=== PATIENT | female | born 1985 | race Hispanic/Latino ===

== ENCOUNTER 2020-12-08 00:44 | Emergency (ER) | payer SELFPAY ==
[2020-12-08] MEDS ORDERED: CLINDAMYCIN 900 MG/D5% WATER 50 ML IV ONE (01:16)
[2020-12-08] MEDS ORDERED: TETANUS/DIPHTHERIA TOXOID [ADULT] 0.5 ML VIAL IM ONE (01:17)
[2020-12-08] MEDS ORDERED: KETOROLAC TROMETHAMINE 30MG/ML ONE (01:46)
== END 2020-12-08 02:46 | disposition home or self-care (01) ==
LOC: EDH 00:44
DX: S90.821A Blister (nonthermal), right foot, initial encounter (principal); S90.822A Blister (nonthermal), left foot, initial encounter; L03.116 Cellulitis of left lower limb; L03.115 Cellulitis of right lower limb; Z98.51 Tubal ligation status; X58.XXXA Exposure to other specified factors, initial encounter; Y93.89 Activity, other specified; Y92.89 Other specified places as the place of occurrence of the external cause; Y99.8 Other external cause status
CPT/HCPCS: 90471; 90714; 96365; 96375; 99284; J1885; J3490; 96372

== ENCOUNTER 2021-05-19 10:35 | Emergency (ER) | payer OTHER ==
[~2021-05-19] VITALS: Ht 152.4 cm; Wt 56.7 kg
[2021-05-19 12:08] VITALS: BP 127/80
[2021-05-19] MEDS ORDERED: ACETAMINOPHEN WITH CODEINE 1 TAB TAB PO SCH (12:30)
[2021-05-19] MEDS ORDERED: CEFTRIAXONE 1G VIAL IM SCH (12:30)
[2021-05-19] MEDS ORDERED: PHENAZOPYRIDINE HCL 200 MG TABLET PO SCH (12:30)
[2021-05-19] MEDS ORDERED: ALBUTEROL INHALER 90MCG/INH IH PRN (12:30)
[2021-05-19 12:40] LABS: APPEARANCE,URINE Cloudy (CLEAR); BILIRUBIN,URINE Negative (NEGATIVE); COLOR,URINE Yellow (YELLOW); GLUCOSE, URINE (UA) Negative (NEGATIVE); KETONES,URINE Negative (NEGATIVE); LEUKOCYTE ESTERASE ,URINE Moderate (NEGATIVE); NITRATE,URINE Negative (NEGATIVE); OCCULT BLOOD,URINE Negative (NEGATIVE); PROTEIN,URINE Negative (NEGATIVE)
[2021-05-19] MEDS ORDERED: LIDOCAINE HCL-MPF 1% 2ML VIAL ONE (12:51)
[2021-05-19] MEDS ORDERED: AZITHROMYCIN 250 MG TABLET PO SCH (13:00)
[2021-05-19 13:02] LABS: BACTERIA,URINE Few /HPF (None Seen); RBC,URINE 0-1 /HPF (0-1); TRICHOMONAS,URINE Few /LPF (None Seen)
[2021-05-19] MEDS ORDERED: METR500T PO (13:41)
[2021-05-19] MEDS ORDERED: CEPH500B PO (13:41)
[2021-05-19] MEDS ORDERED: D-ME1POW16 PO (13:42)
[2021-05-19] MEDS ORDERED: METRONIDAZOLE 500 MG TABLET PO SCH (14:50)
[2021-05-23 16:09] LABS: CHLAMYDIA DNA N.A.AMPLIFY Positive (Negative)
== END 2021-05-19 14:02 | disposition home or self-care (01) ==
LOC: EDH 10:35
DX: N39.0 Urinary tract infection, site not specified (principal); J06.9 Acute upper respiratory infection, unspecified; A59.9 Trichomoniasis, unspecified; Z20.822 Contact with and (suspected) exposure to COVID-19; Z79.899 Other long term (current) drug therapy
CPT/HCPCS: 71045; 81001; 87088; 87486; 87635; 87797; 87804 ×2; 96372; 99284; C9803; J0696; J3490

== ENCOUNTER 2022-01-28 08:10 | Emergency (ER) | payer OTHER ==
[~2022-01-28] VITALS: Ht 154.9 cm; Wt 63.0 kg
[~2022-01-28 08:10] MED LIST: CEPH500B PO; D-ME1POW16 PO; METR500T PO
[2022-01-28] MEDS ORDERED: GUAIFENESIN-CODEINE 5 ML SYRUP ONE (09:15)
[2022-01-28] MEDS ORDERED: D-ME118S47 PO (09:26)
[2022-01-28 09:27] VITALS: BP 121/84
[2022-01-28] MEDS ORDERED: GUAIFENESIN-CODEINE 5 ML SYRUP PO ONE (09:30)
[2022-01-28] MEDS ORDERED: GUAIFENESIN-CODEINE 5 ML SYRUP PO SCH (09:30)
== END 2022-01-28 09:30 | disposition home or self-care, planned readmission (81) ==
LOC: EDH 08:10
DX: J06.9 Acute upper respiratory infection, unspecified (principal); Z20.822 Contact with and (suspected) exposure to COVID-19; Z98.890 Other specified postprocedural states; Z79.899 Other long term (current) drug therapy
CPT/HCPCS: 71045; 87635; 87804 ×2; 87880; 99284; C9803